=== PATIENT | female | born 1955 | race Caucasian/White ===

== ENCOUNTER → 2025-05-10 | Outpatient (CLI) | payer MEDICARE, OTHER, SELFPAY ==
[2025-05-10 17:58] LABS: Hematocrit 41.4 % (37-47); Hemoglobin 13.4 g/dL (12.0-15.0); Immature Granulocytes Count 0.010 X10^3/uL (0.0-0.0); Mean Corp Hgb Conc 32.4 g/dL (32-36); Mean Corpuscular Volume 90.0 fL (81-99); Mean Platelet Vol. 11.1 fl (6.2-12.0); NRBC Flagged by Analyzer 0 % (0-5); Platelet Count 231 K/mm3 (150-450); RBC Distribution Width CV 13.7 % (11.6-14.6); RBC Distribution Width SD 45.3 fl (35.1-43.9); Red Blood Count 4.60 M/mm3 (4.2-5.4); White Blood Count 5.3 K/mm3 (4.4-11.0)
[2025-05-10 18:46] LABS: Creatinine, Urine (random) 105.00 mg/dL (28.00-217.00); Protein, Urine (Random) 84.9 mg/dL (0.0-12.0); Protein:Creat Ratio 809 mg/g CRE (0-200)
[2025-05-10 18:57] LABS: AST(SGOT) 42 U/L (<=31); Alanine Aminotransfer ALT/SGPT 52 U/L (<=34); Albumin, Serum 4.2 g/dL (3.4-4.8); Alkaline Phosphatase 64 U/L (35-104); Anion Gap 15 (5-15); BUN 12 mg/dL (4-19); BUN/Creat Ratio 14.7 RATIO (10-20); Calcium,Total 9.7 mg/dL (7.6-11.0); Carbon Dioxide 22.4 mmol/L (21.0-32.0); Chloride 102 mmol/L (98-108); Globulin 3.2 g/dL (2.2-4.2); Glucose 134 mg/dL (70-99); Hepatitis B Surface Antigen Nonreactive (Nonreactive); Hepatitis C Antibody Nonreactive (Nonreactive); Potassium 4.2 mmol/L (3.3-5.1)
[2025-05-10 18:58] LABS: CRP < 3.00 mg/L (0.0-3.0)
[2025-05-10 18:59] LABS: Color, Urine Yellow (Yellow); Glucose, Dipstick 250 mg/dl (Normal); Ketone-Dipstick Negative (Negative); Leukocyte Esterase-Dipstick Negative /ul (Negative); Nitrite-Dipstick Negative (Negative); Occult Blood-Urine 10 /ul (Negative); Protein-Dipstick 100 mg/dl (Negative); Specific Gravity, Urine 1.015 (1.002-1.030); Urine Bilirubin Dipstick Negative (Negative)
[2025-05-12 14:09] LABS: ANTINUCLEAR ANTIBODIES DIRECT Negative (Negative); Anti-Jo <0.2 AI (0.0-0.9); Anti-dsDNA Ab 2 IU/mL (0-9); SJOGREN'S Anti-SS-A test < 0.2 AI (0.0-0.9); SJOGREN'S Anti-SS-B test < 0.2 AI (0.0-0.9)
== END | disposition home or self-care (01) ==
LOC: MTLAB 14:23
PROVIDERS: PCP Internal Medicine; Referring Provider Internal Medicine Rheumatology; Visit Provider Internal Medicine Rheumatology
DX: M05.79 Rheumatoid arthritis with rheumatoid factor of multiple sites without organ or systems involvement (principal); K76.0 Fatty (change of) liver, not elsewhere classified; Z79.899 Other long term (current) drug therapy
CPT/HCPCS: 36415; 80053; 81002; 82570; 84156; 85025; 85652; 86038; 86140; 86160; 86200; 86225; 86235; 86431; 86706; 86803; 87340